=== PATIENT | female | born 1990 | race Caucasian/White ===

== ENCOUNTER 2022-07-20 11:03 | Outpatient (CLI) | payer BC, SELFPAY ==
--- NOTE | 2022-07-20 11:00 | CRLHL7_ITS ---
For Patients: As a result of the Century Cures Act, medical imaging exams and procedure reports are released immediately into your electronic medical record. You may view this report before your referring provider. If you have questions, please contact your health care provider. CLINICAL HISTORY: IUD check TECHNIQUE: 2D sibley scale and color Doppler images were acquired of the pelvis using a transvaginal approach. FINDINGS: On transvaginal imaging, the myometrium has a normal uniform echotexture. No uterine fibroid. IUD in good position within the endometrium. The left ovary measures 3.1 x 2.0 x 2.1 cm in size and the right ovary measures 4.0 x 2.3 x 2.3 cm. The ovaries demonstrate normal arterial and venous blood flow on color Doppler analysis. There are no suspicious fluid collections within the cul-de-sac. IMPRESSION: Normal position of the IUD. Dictated by Glenn Freeman MD @ 07/20/2022 12:38:20 PM (Electronically Signed)
== END 2022-07-20 11:04 | disposition home or self-care (01) ==
LOC: US 11:08
PROVIDERS: Visit Provider Obstetrics & Gynecology
DX: Z30.431 Encounter for routine checking of intrauterine contraceptive device (principal)
CPT/HCPCS: 76830

== ENCOUNTER 2023-04-20 08:30 | Outpatient (RCR) | payer BC, SELFPAY | END 2023-04-20 10:16 | disposition home or self-care (01) | PROVIDERS: Visit Provider Physical Medicine & Rehabilitation Pain Medicine | DX: M54.50 Low back pain, unspecified (principal); M54.16 Radiculopathy, lumbar region; M79.604 Pain in right leg; Z51.89 Encounter for other specified aftercare | CPT/HCPCS: 97110; 97112; 97140; 97162; 97530 ==